=== PATIENT | female | born 1990 | race Caucasian/White ===

== ENCOUNTER → 2017-08-29 | Outpatient (CLI) | payer OTHER ==
[~2017-08-29] MED LIST: IBUP600 PO; OXYC1SOL5 PO; PERI8.6T PO; PREN0.01 PO; ZOVI200C24 PO
[2017-08-29 07:49] LABS: AUTOMATED NEUTROPHIL # 1.7 TH/MM3 (1.8-7.7); BASOPHIL % 1.1 % (0.0-2.0); EOSINOPHIL # 0.1 TH/MM3 (0-0.4); EOSINOPHIL % 1.5 % (0.0-4.0); HEMATOCRIT 40.2 % (35.0-46.0); HEMOGLOBIN 14.5 GM/DL (11.6-15.3); LYMPH % 46.6 % (9.0-44.0); LYMPHOCYTE # 1.8 TH/MM3 (1.0-4.8); MEAN CELL VOLUME 87.9 FL (80.0-100.0); MEAN CORPUSCULAR HEMOGLOBIN 31.6 PG (27.0-34.0); MEAN CORPUSCULAR HGB CONC 35.9 % (32.0-36.0); MEAN PLATELET VOLUME 7.6 FL (7.0-11.0); MONO % 8.4 % (0.0-8.0); MONOCYTE # 0.3 TH/MM3 (0-0.9); NEUT % 42.4 % (16.0-70.0); PLATELET COUNT 261 TH/MM3 (150-450); RED BLOOD COUNT 4.58 MIL/MM3 (4.00-5.30); RED CELL DISTRIBUTION WIDTH 12.2 % (11.6-17.2); WHITE BLOOD COUNT 3.9 TH/MM3 (4.0-11.0)
[2017-08-29 08:13] LABS: ALBUMIN 4.2 GM/DL (3.4-5.0); AST (GOT) 10 U/L (15-37); BICARBONATE 28.2 MEQ/L (21.0-32.0); BLOOD UREA NITROGEN 10 MG/DL (7-18); CHLORIDE 106 MEQ/L (98-107); CHOLESTEROL 188 MG/DL (120-200); CREATININE 0.77 MG/DL (0.50-1.00); GLOMERULAR FILTRATION RATE 91 ML/MIN (>89); GLUCOSE,FASTING 85 MG/DL (74-99); MAGNESIUM 2.2 MG/DL (1.5-2.5); SODIUM (NA) 141 MEQ/L (136-145)
[2017-08-29 08:23] LABS: ALKALINE PHOSPHATASE 36 U/L (45-117); ALT (GPT) 21 U/L (10-53); CHOLESTEROL/ HDL RATIO 2.46 RATIO; FREE T3 2.98 PG/ML (2.18-3.98); FREE T4 1.08 NG/DL (0.76-1.46); HDL CHOLESTEROL 76.2 MG/DL (40.0-60.0); LDL CHOLESTEROL 101 MG/DL (0-99); TOTAL BILIRUBIN ADULT 0.8 MG/DL (0.2-1.0); TOTAL PROTEIN 8.1 GM/DL (6.4-8.2); TRIGLYCERIDES 55 MG/DL (42-150)
--- NOTE | 2017-08-29 14:08 | EKG ---
Date Performed: 08/29/2017 Time Performed: 08:54:30 PTAGE: 27 years EKG: Sinus rhythm . Normal ECG NO PREVIOUS TRACING DOCTOR: Rogelio Magallanes Interpretating Date/Time 08/29/2017 14:06:28
[2017-08-29 16:03] LABS: HEMOGLOBIN A1C 4.7 % (4.3-6.0)
--- NOTE | 2017-08-30 22:17 | HM ---
Date Performed: 08/29/2017 Time Performed: 08:12:00 HOOKUP DATE: 08/29/17 08:12:00 AM Tue ANALYSIS START TIME: 08/29/2017 8:17:00 AM ANALYSIS END TIME: 08/30/2017 6:24:47 AM PATIENT AGE: 27 PATIENT HEIGHT PATIENT WEIGHT DRUG LIST PATIENT DIAGNOSIS: palpitations TEST NARRATIVE: The patient's average heart rate was 78 BPM. Heart rates greater than 120 B PM were noted 1% of the time. No episodes of bradycardia were noted. No pauses exceeding 2.0 sec onds were noted. 4 ventricular ectopics, which represented < 1% of the total beat count, were not ed. The highest ventricular ectopic frequency occurred from 09:00 AM to 10:00 AM Tue. During this t brad 1 VE(s) occurred. Ventricular ectopics were observed as 4 isolated beat(s) only. No couplets or runs were noted. No supraventricular ectopics were noted. Multiple episodes of ST depression (defined as -1.0 mm or more) were noted in channel 1. The maximum depression of -2.4 mm occurred a t 08:22:03 AM Tue. Multiple episodes of ST depression (defined as -1.0 mm or more) were noted in ch kar 2. The maximum depression of -2.4 mm occurred at 10:12:24 AM Tue. No episodes of ST depressio n (defined as -1.0 mm or more) were noted in channel 3. NO DIARY RETURNED TEST INTERPRETATION: Sinus rhythm Sinus tachycardia Rare PVCs and PACs Signed by : Trace Esteban
[2017-08-31 13:52] LABS: ENDOMYSIAL AB SCREEN ND (NEGATIVE); ENDOMYSIAL AB TITER ND (<1:5)
[2017-08-31 17:52] LABS: CODFISH CLASS 0; CODFISH IGE LESS THAN 0.10 kU/L; COWS MILK CLASS 0; COWS MILK IGE LESS THAN 0.10 kU/L; EGG WHITE LESS THAN 0.10 kU/L; EGG WHITE CLASS 0; PEANUT LESS THAN 0.10 kU/L; PEANUT CLASS 0; SCALLOP LESS THAN 0.10 kU/L; SCALLOP CLASS 0; SESAME SEED LESS THAN 0.10 kU/L; SESAME SEED CLASS 0; SHRIMP LESS THAN 0.10 kU/L; SHRIMP CLASS 0; SOYBEAN LESS THAN 0.10 kU/L; SOYBEAN CLASS 0; WALNUT LESS THAN 0.10 kU/L; WALNUT CLASS 0; WHEAT LESS THAN 0.10 kU/L; WHEAT CLASS 0
== END ==
LOC: CLAB 07:13
PROVIDERS: ATTEND Family Medicine
DX: R00.2 Palpitations (principal); Z91.013 Allergy to seafood
CPT/HCPCS: 36415; 80053; 80061; 82784; 83036; 83516; 83735; 84439; 84443; 84481; 85025; 86003; 93005; 93225; 93226

== ENCOUNTER → 2017-12-11 | Outpatient (CLI) | payer OTHER | LOC: CLAB 15:45 | PROVIDERS: ATTEND Obstetrics & Gynecology | DX: N91.4 Secondary oligomenorrhea (principal) | CPT/HCPCS: 36415; 84702 ==

== ENCOUNTER → 2017-12-13 | Outpatient (CLI) | payer OTHER | LOC: CLAB 15:00 | PROVIDERS: ATTEND Obstetrics & Gynecology | DX: N91.4 Secondary oligomenorrhea (principal) | CPT/HCPCS: 36415; 84702 ==

== ENCOUNTER → 2018-01-26 | Outpatient (CLI) | payer OTHER ==
[2018-01-26 07:27] LABS: AUTOMATED NEUTROPHIL # 2.4 TH/MM3 (1.8-7.7); BASOPHIL % 0.7 % (0.0-2.0); EOSINOPHIL # 0.1 TH/MM3 (0-0.4); EOSINOPHIL % 2.2 % (0.0-4.0); HEMATOCRIT 41.8 % (35.0-46.0); HEMOGLOBIN 14.4 GM/DL (11.6-15.3); LYMPH % 39.4 % (9.0-44.0); LYMPHOCYTE # 1.9 TH/MM3 (1.0-4.8); MEAN CELL VOLUME 89.7 FL (80.0-100.0); MEAN CORPUSCULAR HEMOGLOBIN 30.8 PG (27.0-34.0); MEAN CORPUSCULAR HGB CONC 34.3 % (32.0-36.0); MEAN PLATELET VOLUME 7.3 FL (7.0-11.0); MONO % 7.5 % (0.0-8.0); MONOCYTE # 0.4 TH/MM3 (0-0.9); NEUT % 50.2 % (16.0-70.0); PLATELET COUNT 281 TH/MM3 (150-450); RED BLOOD COUNT 4.66 MIL/MM3 (4.00-5.30); RED CELL DISTRIBUTION WIDTH 12.6 % (11.6-17.2); WHITE BLOOD COUNT 4.8 TH/MM3 (4.0-11.0)
== END ==
LOC: CLAB 06:51
PROVIDERS: ATTEND Obstetrics & Gynecology
DX: Z00.00 Encounter for general adult medical examination without abnormal findings (principal); Z11.9 Encounter for screening for infectious and parasitic diseases, unspecified; Z11.3 Encounter for screening for infections with a predominantly sexual mode of transmission
CPT/HCPCS: 36415; 80074; 85025; 86592; 87389; G0475

== ENCOUNTER 2018-05-13 18:52 | Observation (INO) ==
--- NOTE | 2018-05-13 19:49 | XR ---
EXAM DATE: 05/13/2018 7:38 PM EDT AGE/SEX: 28 years / Female INDICATIONS: . Chest pain CLINICAL DATA: This is the patient's initial encounter. Patient reports that signs and symptoms have been present for 4 - 6 days and indicates a pain score of 6/10. MEDICAL/SURGICAL HISTORY: None. None. COMPARISON: No prior exams available for comparison. FINDINGS: The lungs are clear without infiltrate, nodule, or mass. There is no appreciable pleural effusion for technique. Heart and mediastinum are unremarkable. CONCLUSION: No acute cardiopulmonary disease. Electronically signed by: Chava Liu MD 05/13/2018 7:48 PM EDT
[2018-05-13 19:50] LABS: Baso % (Auto) 0.5 % (0.0-2.0); Eos # (Auto) 0.1 th/mm3 (0.0-0.4); Eos % (Auto) 0.8 % (0.0-4.0); Hematocrit 43.1 % (35.0-46.0); Hemoglobin 14.7 gm/dL (11.6-15.3); Lymph # (Auto) 2.7 th/mm3 (1.0-4.8); Lymph % (Auto) 35.2 % (9.0-44.0); Mean Corpuscular HGB Conc 34.1 % (32.0-36.0); Mean Corpuscular Hemoglobin 30.4 pg (27.0-34.0); Mean Corpuscular Volume 89.4 fL (80.0-100.0); Mean Platelet Volume 7.7 fL (7.0-11.0); Mono # (Auto) 0.7 th/mm3 (0.0-0.9); Mono % (Auto) 8.9 % (0.0-8.0); Neut # (Auto) 4.2 th/mm3 (1.8-7.7); Neut % (Auto) 54.6 % (16.0-70.0); Platelet Count 261 th/mm3 (150-450); Red Blood Count 4.82 mil/mm3 (4.00-5.30); Red Cell Distribution Width 12.6 % (11.6-17.2); White Blood Count 7.8 th/mm3 (4.0-11.0)
[2018-05-13 20:08] LABS: Anion Gap 7 meq/L (5-15); Blood Urea Nitrogen 11 mg/dL (7-18); Carbon Dioxide 28.3 meq/L (21.0-32.0); Chloride 104 meq/L (98-107); Glomerular Filtration Rate Greater Than 89 mL/min (>89); Glucose,Random 100 mg/dL (74-106); Potassium 3.4 meq/L (3.5-5.1); Sodium 139 meq/L (136-145)
[2018-05-13 20:12] LABS: Creatine Kinase 64 U/L (26-192)
--- NOTE | 2018-05-13 23:00 | ED ---
HPI General Chief Complaint: Chest Pain Stated Complaint: Chest Discomfort Time Seen by Provider: 05/13/18 22:45 Source: patient Mode of arrival: ambulatory Limitations: no limitations History of Present Illness MD complaint: chest pain STEMI Alert: No Onset (ago): day(s) (5) Duration: intermittent and other (constant today) Onset: during rest Pain location: substernal Severity: moderate Quality: tightness Pain radiation: LUE, neck and jaw/teeth Relieving factors: nothing Exacerbating factors: nothing Treatments prior to arrival chest pain: aspirin Related Data Allergies Allergy/AdvReac Type Severity Reaction Status Date / Time No Known Allergies Allergy Unverified 05/13/18 19:20 Review of Systems ROS: all other systems reviewed are negative [facility] Medical History Medical History Leaky heart valve (Acute) Surgical History Surgical History Hx of breast augmentation (Acute) Social History Social History Substance History: No History of Abuse Smoking Status: Never smoker How Often Do You Have a Drink Containing Alcohol: Monthly or less Recent Out of Country Travel within the Last 8 Weeks: No Immunization History Tetanus Immunization: >5 Years Hx Influenza Vaccine This Season: No Exam Const General: cooperative, healthy appearing and comfortable Orientation: alert, awake and oriented x3 HENMT Head: normal to inspection, normocephalic and atraumatic Eyes General: appearance normal, both eyes and all related structures Conjunctivae: conjunctivae normal Sclera: sclerae normal EOM: EOM intact bilaterally Neck Neck: normal visual inspection and full ROM Chest Chest: normal inspection of the chest Resp Effort & Inspection: normal respiratory effort and able to speak in complete sentences Auscultation: clear to auscultation bilaterally Cardio Rate: regular rate Rhythm: regular rhythm Heart Sounds: S1 normal and S2 normal GI Inspection: normal to inspection Palpation: soft Back/Spine/Pelvis Cervical Spine: cervical ROM normal Thoracic/Lumbar Spine: thoraco-lumbar ROM normal Skin General: no rashes or lesions noted, turgor normal and dry skin Neuro General: alert, awake, oriented x3, moves all extremities and CN's II-XI intact bilaterally Extrem General: normal to inspection, full ROM and no pedal edema Psych Appearance: grossly normal Mental Status: mental status grossly normal Speech and Movement: speech and movement normal Mood: congruent mood Affect: normal affect Attitude: cooperative Thought Process: normal Thought Content: normal Judgment: judgment good Course Initial Documented Vital Signs Temperature 98.7 F 05/13/18 19:20 Pulse Rate 118 H 05/13/18 19:20 Respiratory Rate 15 05/13/18 19:20 Blood Pressure 127/70 05/13/18 19:20 Pulse Oximetry 99 05/13/18 19:20 Last Documented Vital Signs Temperature 98.7 F 05/13/18 19:20 Pulse Rate 82 05/13/18 22:32 Respiratory Rate 18 05/13/18 22:32 Blood Pressure 120/77 05/13/18 22:32 Pulse Oximetry 100 05/13/18 22:32 Medical Decision Making MDM Narrative Medical decision making narrative: This patient presents with a 5-day history of chest pain. It radiates to the left arm, neck and left jaw. He states that the pain has been intermittent until today when it became continuous. Has taken aspirin at home. Her initial cardiac workup is negative. The patient will be admitted to the chest pain center for further evaluation. Medical Screen Exam Complete: Yes Emergency Medical Condition: Yes Differential Diagnosis Differential Diagnosis: Differential diagnosis of chest pain includes but is not limited to musculoskeletal pain, pulmonary embolism, acute coronary syndrome , pneumonia, pleurisy Lab Data Lab results reviewed: Yes I reviewed the patient's lab results. Result diagrams: 05/13/18 19:39 05/13/18 19:39 Lab Results 05/13/18 05/13/18 Range/Units 19:39 19:39 WBC 7.8 (4.0-11.0) th/mm3 RBC 4.82 (4.00-5.30) mil/mm3 Hgb 14.7 (11.6-15.3) gm/dL Hct 43.1 (35.0-46.0) % MCV 89.4 (80.0-100.0) fL MCH 30.4 (27.0-34.0) pg MCHC 34.1 (32.0-36.0) % RDW 12.6 (11.6-17.2) % Plt Count 261 (150-450) th/mm3 MPV 7.7 (7.0-11.0) fL Neut % (Auto) 54.6 (16.0-70.0) % Lymph % (Auto) 35.2 (9.0-44.0) % [place] % (Auto) 8.9 H (0.0-8.0) % Eos % (Auto) 0.8 (0.0-4.0) % Baso % (Auto) 0.5 (0.0-2.0) % Neut # (Auto) 4.2 (1.8-7.7) th/mm3 Lymph # (Auto) 2.7 (1.0-4.8) th/mm3 [place] # (Auto) 0.7 (0.0-0.9) th/mm3 Eos # (Auto) 0.1 (0.0-0.4) th/mm3 Baso # (Auto) 0.0 (0.0-0.2) th/mm3 WBC Differential . Differential Comment Auto diff final Sodium 139 (136-145) meq/L Potassium 3.4 L (3.5-5.1) meq/L Chloride 104 (98-107) meq/L Carbon Dioxide 28.3 (21.0-32.0) meq/L Anion Gap 7 (5-15) meq/L BUN 11 (7-18) mg/dL Creatinine 0.71 (0.50-1.00) mg/dL Estimated GFR Greater than 89 (>89) mL/min Random Glucose 100 (74-106) mg/dL Calcium 9.0 (8.5-10.1) mg/dL Total Creatine Kinase 64 (26-192) U/L Troponin I Less than 0.02 L (0.02-0.05) ng/mL Imaging Data Attestation: I personally reviewed and interpreted this imaging study as follows : Radiologist's impression: Chest X-Ray 05/13/18 19:23 CONCLUSION: No acute cardiopulmonary disease. ECG Data EKG Prior to Arrival: No Attestation: I personally reviewed and interpreted this ECG as follows: (EKG shows a sinus rhythm with a rate of 114. No acute STT wave changes.) Discharge Plan Discharge Disposition Patient Disposition: 30 Still Patient Discharge Details Diagnosis: Chest pain Physicians Team ED Provider: Alisson Abebe Discharge Instructions Patient Printed Instructions: Chest Pain (ED) Discharge Interventions Interventions: Vital Signs Last Done: 05/13/18 22:32 Status ED Status: With Doctor
[2018-05-14 00:36] LABS: Creatine Kinase 52 U/L (26-192)
[2018-05-14 04:24] LABS: Creatine Kinase 43 U/L (26-192)
[2018-05-14 08:50] VITALS: BP 118/70; PULSE 86; RESP 18; TEMP 98.1; O2SAT 100
[2018-05-14] MEDS ORDERED: Aspirin 325 MG Tablet PO SCH (09:00)
--- NOTE | 2018-05-14 10:11 | P.HPCA ---
History of Present Illness Primary Care Physician: Reed Godoy MD Chief Complaint: Chest pain History of Present Illness: This is a 28-year-old female that presents to ED via private vehicle to be evaluated for intermittent left-sided chest heaviness for 5 days. Her last all day long. Yesterday it radiated to her left jaw. Couple days ago at a [employer] football game while walking up the bleachers she became short of breath and her heart rate 170. Otherwise she had no shortness of breath. Denied nausea or diaphoresis. After further discussion with the patient, she has been evaluated by Dr. mendez. States she had an echo and had a Holter monitor revealing sinus tachycardia. No medication at the time. Currently denies chest discomfort. Denies . Denies hypertension, hyperlipidemia, diabetes, and CAD. Patient is a non-smoker. - Diagnosis (1) Chest pain Review of Systems General: Patient denies fevers, chills, and recent travel. HEENT: Patient denies headache, sore throat, difficulty swallowing. Cardiovascular: Has the chest discomfort as mentioned above. Over the weekend while walking up bleachers at a football game she developed fast heart rate. States her heart rate was 170. Denies sensation of heart beating irregularly. No syncope. Respiratory: She became short of breath walking up the bleachers when heart rate was 170. Denies inspirational chest discomfort. Denies coughing wheezing or hemoptysis. GI: Patient denies nausea, vomiting, diarrhea, abdominal pain, bloody stools. Musculoskeletal: Patient denies joint pain or edema. Denies calf pain or edema. Neurovascular: Patient denies numbness, tingling, weakness in extremities. Denies headache. Endocrine: Denies polyuria and polydipsia. Hematologic: Denies easy bruising. Skin: Denies rash or itching. PMFSH - History History Provided By: Patient - Medical History Medical History: Medical History (Last Reviewed 05/13/18 @ 22:58 by Alisson Abebe) Leaky heart valve - Surgical History Surgical History: Surgical History (Last Updated 05/13/18 @ 22:33 by Kesha Gibbons) Hx of breast augmentation - Tobacco History Second Hand Smoke Exposure: No (When A Child) Smoking Status: Never smoker - Alcohol History How Often Do You Have a Drink Containing Alcohol: Monthly or less - Substance Use History Substance History: No History of Abuse - Travel History Recent Travel in the [place] Within the Last 8 Weeks: No Recent Travel Out of the Country Within the Last 8 Weeks: No - Immunization History Tetanus Immunization: >5 Years Hx Influenza Vaccine This Season: No Medications and Allergies Active Medications: Active Medications Aspirin (Aspirin) 325 mg PO DAILY BLOSSOM Sodium Chloride (Ns Flush) 2 ml IV.FLUSH BID BLOSSOM Sodium Chloride (Ns Flush) 2 ml IV.FLUSH PRN PRN PRN Reason: FLUSH AFTER USING IV ACCESS Allergies Allergy/AdvReac Type Severity Reaction Status Date / Time No Known Allergies Allergy Unverified 05/13/18 19:20 Home Medications Medication Instructions Recorded Confirmed Type No Known Home Medications 05/14/18 05/14/18 History Exam Vital signs: Vital Signs 05/13/18 19:20 05/13/18 22:32 05/14/18 00:00 Temperature 98.7 F 98.3 F Pulse Rate 118 H 82 100 H Respiratory Rate 15 18 16 Blood Pressure 127/70 120/77 116/74 Pulse Oximetry 99 100 100 05/14/18 00:20 05/14/18 04:00 05/14/18 08:48 Temperature 98.3 F 98.1 F Pulse Rate 66 79 86 Respiratory Rate 16 18 Blood Pressure 92/55 L 118/70 Pulse Oximetry 99 100 Intake & Output 05/13/18 05/14/18 05/14/18 18:59 06:59 18:59 Weight 56.699 kg Other: Date of Last Bowel Movement 05/13/18 # Bowel Movements 0 Weight On Admission 56.699 kg Narrative: GENERAL: This is a well-nourished, well-developed patient, in no apparent distress. Patient speaks in clear complete sentences. Patient is pleasant. HEENT: Head is atraumatic and normocephalic. Neck is supple without lymphadenopathy and trachea is midline. No JVD or carotid bruits. CARDIOVASCULAR: Regular rate and rhythm without murmurs, gallops, or rubs. RESPIRATORY: Clear to auscultation. Breath sounds equal bilaterally. No wheezes , rales, or rhonchi. Chest wall is nontender. No use of accessory muscles. GASTROINTESTINAL: Abdomen is nontender, nondistended. Abdomen soft. No obvious pulsatile mass or bruit. No CVA tenderness. Strong femoral pulses bilaterally. Normal bowel sounds in all quadrants. MUSCULOSKELETAL: Patient is moving upper and lower extremities freely. No calf tenderness or edema, no Homans sign. Strong pulses in upper and lower extremities. NEUROLOGICAL: Patient is alert and oriented. Cranial nerves 2-12 are grossly intact. No focal deficits and speech is clear. SKIN: No rash and turgor is normal. Results 05/13/18 19:39 05/13/18 19:39 Cardiac Enzymes 05/13/18 05/13/18 05/14/18 Range/Units 19:39 23:30 03:18 Troponin I Less than 0.02 L Less than 0.02 L Less than 0.02 L (0.02-0.05) ng/mL CBC 05/13/18 Range/Units 19:39 WBC 7.8 (4.0-11.0) th/mm3 RBC 4.82 (4.00-5.30) mil/mm3 Hgb 14.7 (11.6-15.3) gm/dL Hct 43.1 (35.0-46.0) % Plt Count 261 (150-450) th/mm3 Neut # (Auto) 4.2 (1.8-7.7) th/mm3 Lymph # (Auto) 2.7 (1.0-4.8) th/mm3 [place] # (Auto) 0.7 (0.0-0.9) th/mm3 Eos # (Auto) 0.1 (0.0-0.4) th/mm3 Baso # (Auto) 0.0 (0.0-0.2) th/mm3 Comprehensive Metabolic Panel 05/13/18 Range/Units 19:39 Sodium 139 (136-145) meq/L Potassium 3.4 L (3.5-5.1) meq/L Chloride 104 (98-107) meq/L Carbon Dioxide 28.3 (21.0-32.0) meq/L BUN 11 (7-18) mg/dL Creatinine 0.71 (0.50-1.00) mg/dL Calcium 9.0 (8.5-10.1) mg/dL Intake and Output 05/13/18 05/14/18 05/14/18 22:59 06:59 14:59 Other: Date of Last Bowel Movement 05/13/18 # Bowel Movements 0 Weight 56.699 kg 56.699 kg Weight On Admission 56.699 kg - Imaging and Cardiology Imaging: Impressions Chest X-Ray 05/13/18 19:23 CONCLUSION: No acute cardiopulmonary disease. EKG interpretations - EKG EKG shows: sinus rhythm (EKGs are sinus rhythm without significant ST segment depressions or elevations.) Caprini VTE Risk Assessment Caprini VTE Risk Assessment: No/Low Risk (score <= 1) Caprini Risk Assessment Model: Point Value = 1 Point Value = 2 Point Value = 3 Point Value = 5 Age 41-60 Minor surgery BMI > 25 kg/m2 Swollen legs Varicose veins or History of unexplained or recurrent spontaneous Oral contraceptives or hormone replacement Sepsis (< 1 month) Serious lung disease, including pneumonia (< 1 month) Abnormal pulmonary function Acute myocardial infarction Congestive heart failure (< 1 month) History of inflammatory bowel disease Medical patient at bed rest Age 61-74 Arthroscopic surgery Major open surgery (> 45 min) Laparoscopic surgery (> 45 min) Malignancy Confined to bed (> 72 hours) Immobilizing plaster cast Central venous access Age >= 75 History of VTE Family history of VTE Factor V Leiden Prothrombin [id number] Lupus anticoagulant Anticardiolipin antibodies Elevated serum homocysteine Heparin-induced thrombocytopenia Other congenital or acquired thrombophilia Stroke (< 1 month) Elective arthroplasty Hip, pelvis, or leg fracture Acute spinal cord injury (< 1 month) Prophylaxis Regimen: Total Risk Factor Score Risk Level Prophylaxis Regimen 0-1 Low Early ambulation 2 Moderate Order ONE of the following: *Sequential Compression Device (SCD) *Heparin 5000 units SQ BID 3-4 Higher Order ONE of the following medications: *Heparin 5000 units SQ TID *Enoxaparin/Lovenox 40 mg SQ daily (WT < 150 kg, CrCl > 30 mL/min) *Enoxaparin/Lovenox 30 mg SQ daily (WT < 150 kg, CrCl > 10-29 mL/min) *Enoxaparin/Lovenox 30 mg SQ BID (WT < 150 kg, CrCl > 30 mL/min) AND/OR *Sequential Compression Device (SCD) 5 or more Highest Order ONE of the following medications: *Heparin 5000 units SQ TID (Preferred with Epidurals) *Enoxaparin/Lovenox 40 mg SQ daily (WT < 150 kg, CrCl > 30 mL/min) *Enoxaparin/Lovenox 30 mg SQ daily (WT < 150 kg, CrCl > 10-29 mL/min) *Enoxaparin/Lovenox 30 mg SQ BID (WT < 150 kg, CrCl > 30 mL/min) AND *Sequential Compression Device (SCD) Assessment and Plan - Assessment (1) Chest pain Code(s): R07.9 - Chest pain, unspecified Status: Acute - Plan * Chest pain: Patient had serial cardiac enzymes and EKGs for ruling out purposes. She was seen by Dr. Roby Villa of cardiology in the chest pain center. Initially prior to finding out the patient was followed by strategic marketing manager , we were going to do a Adriel protocol ETT. However I discussed the patient with her strategic marketing manager Dr. mendez and he requests that the patient be discharged and suggested to start the patient on digoxin 0.125 mg and that he would see her in the office. I discussed this with Dr. Villa, he preferred to defer starting her on digoxin to her strategic marketing manager when she sees him in the office. Patient be discharged at this time. She is stable at this time. She is agreeable to this plan. H&P: Quality - VTE Deep Vein Thrombosis/Pulmonary Embolism Present on Admission: No (1) Chest pain Qualifiers: Chest pain type: unspecified Qualified Code(s): R07.9 - Chest pain, unspecified
--- NOTE | 2018-05-14 10:28 | ECG ---
Date Performed: 05/14/2018 Time Performed: 03:17:25 PTAGE: 28 years EKG: Sinus rhythm WITH SINUS ARRHYTHMIA NORMAL ECG PREVIOUS TRACING : 05/13/2018 23.51 Since previous tracing, no significant change noted DOCTOR: Roby Villa Interpretating Date/Time 05/14/2018 10:27:23
--- NOTE | 2018-05-14 10:29 | ECG ---
Date Performed: 05/13/2018 Time Performed: 19:27:53 PTAGE: 28 years EKG: SINUS TACHYCARDIA NONSPECIFIC ST & T-WAVE ABNORMALITY ABNORMAL RHYTHM ECG PREVIOUS TRACING : 08/29/2017 08.54 Since previous tracing, no significant change noted DOCTOR: Roby Villa Interpretating Date/Time 05/14/2018 10:28:33
--- NOTE | 2018-05-14 10:32 | ECG ---
Date Performed: 05/13/2018 Time Performed: 23:51:56 PTAGE: 28 years EKG: Sinus rhythm NORMAL ECG PREVIOUS TRACING : 05/13/2018 19.27 Since previous tracing, no significant change noted DOCTOR: Roby Villa Interpretating Date/Time 05/14/2018 10:31:00
== END 2018-05-14 10:39 | disposition home or self-care (01) ==
LOC: NEPC 18:52 → NEDA 18:52 → NEPGCP 05-14 00:08
PROVIDERS: ADMIT Internal Medicine Interventional Cardiology; ATTEND Internal Medicine Interventional Cardiology
DX: R00.0 Tachycardia, unspecified; R07.9 Chest pain, unspecified; R94.31 Abnormal electrocardiogram [ECG] [EKG]